=== PATIENT | male | born 1955 | race Caucasian/White ===

== ENCOUNTER 2018-11-07 04:44 | Emergency (ER) | payer MEDICARE ==
[~2018-11-07] VITALS: Ht 193 cm; Wt 88.5 kg
[2018-11-07 05:48] LABS: Basophils # (auto) 0.1 uL; Eosinophils # (auto) 0.2 uL; Eosinophils % (auto) 2.7 % (0.0-7.0); Hematocrit 48.8 % (41.0-53.0); Hemoglobin 16.4 g/dL (13.5-17.5); Lymphocytes # (auto) 1.4 uL; Lymphocytes % (auto) 15.9 % (10.0-50.0); Mean Corpuscular Hemoglobin 31.9 pg (28.0-32.0); Mean Corpuscular Hgb Conc. 33.7 g/dL (32.0-36.0); Mean Corpuscular Volume 94.6 fL (80.0-100.0); Monocytes # (auto) 0.9 uL; Monocytes % (auto) 10.6 % (0.0-12.0); Neutrophils # (auto) 6.1 uL; Neutrophils % (auto) 69.8 % (37.0-80.0); Platelet Count (auto) 293 10^3/uL (140-450); Red Blood Cells 5.15 10^6/uL (4.5-5.90); Red Cell Distribution Width 14.1 % (11.8-14.3); White Blood Cell 8.7 10^3/uL (4.4-10.8)
[2018-11-07 05:59] LABS: Albumin 3.8 g/dL (3.4-5.0); BUN/Creatinine Ratio 11.5; Calcium 8.4 mg/dL (8.5-10.1); Potassium 4.2 mmol/L (3.5-5.1)
[2018-11-07 06:01] LABS: Bilirubin, Total 0.6 mg/dL (0.2-1.0); Total Protein 7.4 g/dL (6.4-8.2)
[2018-11-07 09:11] VITALS: BP 176/103
== END 2018-11-07 09:18 | disposition home or self-care (01) ==
LOC: ER 04:47
DX: M25.472 Effusion, left ankle (principal); I10 Essential (primary) hypertension; F17.210 Nicotine dependence, cigarettes, uncomplicated
CPT/HCPCS: 36415; 73610; 80053; 85025; 85379; 93971

== ENCOUNTER 2019-12-14 01:44 | Emergency (ER) | payer OTHER, MEDICAID ==
[~2019-12-14] VITALS: Ht 190.5 cm; Wt 79.4 kg
[2019-12-14] MEDS ORDERED: ACETAMINOPHEN 325 MG TAB PO ONE (02:30)
[2019-12-14] MEDS ORDERED: IPRATROPIUM BROM 0.5 MG/2.5ML INH SOL NEB ONE (02:45)
[2019-12-14] MEDS ORDERED: ALBUTEROL SULF 2.5 MG/0.5ML(0.5%) NEB SOLN NEB ONE (02:45)
[2019-12-14 03:09] LABS: Basophils # (auto) 0.1 uL; Basophils % (auto) 1.2 % (0.0-2.0); Eosinophils # (auto) 0 uL; Eosinophils % (auto) 0.3 % (0.0-7.0); Hemoglobin 17.7 g/dL (13.5-17.5); Mean Corpuscular Hemoglobin 30.8 pg (28.0-32.0); Monocytes # (auto) 1.1 uL; Neutrophils # (auto) 4.9 uL; Red Cell Distribution Width 13.8 % (11.8-14.3); White Blood Cell 6.8 10^3/uL (4.4-10.8)
[2019-12-14 03:10] LABS: Hematocrit 51.8 % (41.0-53.0); Lymphocytes # (auto) 0.7 uL; Lymphocytes % (auto) 10.8 % (10.0-50.0); Mean Corpuscular Hgb Conc. 34.1 g/dL (32.0-36.0); Mean Corpuscular Volume 90.3 fL (80.0-100.0); Monocytes % (auto) 15.6 % (0.0-12.0); Neutrophils % (auto) 72.1 % (37.0-80.0); Nucleated Red Blood Cells % 0.1 %; Platelet Count (auto) 223 10^3/uL (140-450); Red Blood Cells 5.74 10^6/uL (4.5-5.90)
[2019-12-14 03:31] LABS: Alanine Aminotransferase 36 U/L (16-61); Albumin 3.2 g/dL (3.4-5.0); Anion Gap 9 (5-15); Aspartate Aminotransferase 27 U/L (15-37); BUN/Creatinine Ratio 9.9; Blood Urea Nitrogen 12 mg/dL (7-18); Calcium 8.3 mg/dL (8.5-10.1); Carbon Dioxide 26 mmol/L (21-32); Chloride 100 mmol/L (98-107); GFR African American 77 mL/min; GFR Non-African American 64 mL/min; Glucose 178 mg/dL (74-106); Potassium 4.3 mmol/L (3.5-5.1); Sodium 135 mmol/L (136-145)
[2019-12-14 03:40] LABS: Alkaline Phosphatase 112 U/L (45-117); Bilirubin, Total 0.6 mg/dL (0.2-1.0); Total Protein 7.2 g/dL (6.4-8.2)
[2019-12-14 04:54] LABS: Urine Bacteria NONE SEEN /hpf (None Seen); Urine Blood Negative /uL (Negative); Urine Specific Gravity 1.018 (1.001-1.035); Urine WBC <1 /hpf (0 - 3)
[2019-12-14 09:35] VITALS: BP 118/76
[2019-12-14] MEDS ORDERED: guaiFENesin-CODEINE Liq 5 ML UD PO ONE (10:15)
== END 2019-12-14 10:28 | disposition home or self-care (01) ==
LOC: ER 01:45
DX: J20.9 Acute bronchitis, unspecified (principal); J44.1 Chronic obstructive pulmonary disease with (acute) exacerbation; I11.0 Hypertensive heart disease with heart failure
CPT/HCPCS: 36415; 71045; 80053; 81001; 83605; 83880; 84484; 85025; 87040; 87077; 87186; 93005; 94640; 99284; J7611; J7644

== ENCOUNTER 2024-05-22 23:46 | Inpatient (IN) | payer OTHER, MEDICAID ==
[~2024-05-22] VITALS: Ht 193 cm; Wt 86.0 kg
[2024-05-23] VITALS (16 sets, daily range): BP systolic 131–168; BP diastolic 74–91; PULSE 100–115; RESP 12–24; TEMP 97.7–98.2; O2SAT 91–96
[2024-05-23] MEDS: ALBUTEROL SULF 2.5 MG/0.5ML(0.5%) NEB SOLN NEB ONE ×3 (00:15→07:10)
[2024-05-23] MEDS: IPRATROPIUM BROM 0.5 MG/2.5ML INH SOL NEB ONE ×2 (00:15→04:26)
[2024-05-23 00:24] LABS: Basophils # (auto) 0.1 10 ^3/uL (0-0.2); Basophils % (auto) 1.2 % (0.0-2.0); Eosinophils # (auto) 0.9 10 ^3/uL (0-0.8); Eosinophils % (auto) 8.9 % (0.0-7.0); Hematocrit 49.2 % (41.0-53.0); Hemoglobin 16.5 g/dL (13.5-17.5); Lymphocytes # (auto) 1.4 10 ^3/uL (0.4-5.4); Lymphocytes % (auto) 13.6 % (10.0-50.0); Mean Corpuscular Hemoglobin 30.7 pg (28.0-32.0); Mean Corpuscular Hgb Conc. 33.5 g/dL (32.0-36.0); Mean Corpuscular Volume 91.8 fL (80.0-100.0); Monocytes # (auto) 0.9 10 ^3/uL (0-1.3); Monocytes % (auto) 9.3 % (0.0-12.0); Neutrophils # (auto) 6.8 10 ^3/uL (1.6-8.6); Red Blood Cells 5.36 10^6/uL (4.5-5.90); Red Cell Distribution Width 13.9 % (11.8-14.3); White Blood Cell 10.1 10^3/uL (4.4-10.8)
[2024-05-23 00:55] LABS: Alanine Aminotransferase 26 U/L (7-40); Albumin 4.3 g/dL (3.2-4.8); Alkaline Phosphatase 81 U/L (46-116); Anion Gap 7 (5-15); Aspartate Aminotransferase 27 U/L (13-40); BUN/Creatinine Ratio 6.5 (10.0-20.0); Bilirubin, Total 2.1 mg/dL (0.2-1.0); Blood Urea Nitrogen 6 mg/dL (9-23); Calcium 9.8 mg/dL (8.7-10.4); Carbon Dioxide 27 mmol/L (20-30); Chloride 103 mmol/L (98-107); Glucose 100 mg/dL (74-106); Potassium 3.9 mmol/L (3.5-5.1); Sodium 137 mmol/L (136-145); Total Protein 7.3 g/dL (5.7-8.2)
[2024-05-23] MEDS: hydrALAZINE HCL 20 MG/ML VL IV ONE (03:26)
[2024-05-23] MEDS: IPRATROPIUM BROM 0.5 MG/2.5ML INH SOL ONE (04:27)
[2024-05-23] MEDS: ALBUTEROL SULF 2.5 MG/0.5ML(0.5%) NEB SOLN ONE (04:27)
[2024-05-23] MEDS: methylPREDNISolone SOD SUCC 125 MG/2 ML VL IV ONE (06:33)
[2024-05-23] MEDS ORDERED: MORPHINE SULFATE INJ 2 MG/ml SYRG IV PRN ×2 (07:15→07:30)
[2024-05-23] MEDS ORDERED: IPRATROPIUM BROM 0.5 MG/2.5ML INH SOL NEB PRN (07:15)
[2024-05-23] MEDS ORDERED: ACETAMINOPHEN 325 MG TAB PO PRN ×2 (07:15→07:30)
[2024-05-23] MEDS ORDERED: NITROGLYCERIN 0.4 MG SL TAB SL PRN ×2 (07:15→07:30)
[2024-05-23] MEDS ORDERED: ONDANSETRON HCL 4 MG/2 ML VIAL IV PRN ×2 (07:15→07:30)
[2024-05-23] MEDS ORDERED: ALBUTEROL SULF 2.5 MG/0.5ML(0.5%) NEB SOLN NEB PRN (07:15)
[2024-05-23 07:50] LABS: Urine Bacteria None Seen /hpf (None Seen)
[2024-05-23 08:05] LABS: Urine Blood Negative /uL (Negative); Urine Clarity Clear (Clear); Urine Color Yellow (Yellow); Urine Protein, UAD Negative (Negative); Urine Specific Gravity 1.015 (1.001-1.035); Urine Urobilinogen Normal (Negative); Urine WBC 1 /hpf (0 - 3)
[2024-05-23] MEDS ORDERED: FUROSEMIDE 40 MG TAB PO SCH (10:00)
[2024-05-23] MEDS ORDERED: ENOXAPARIN SOD 40 MG/0.4 ML SYRINGE SC SCH (10:00)
[2024-05-23] MEDS ORDERED: amLODIPine BESYLATE 5 MG TAB PO SCH (10:00)
[2024-05-23] MEDS ORDERED: methylPREDNISolone SOD SUCC 40 MG/ML VL IV SCH (10:00)
[2024-05-23] MEDS ORDERED: FURO20TA3 PO (10:09)
[2024-05-23] MEDS ORDERED: METF-370 PO (10:09)
[2024-05-23] MEDS ORDERED: ALBU2TAB11 NEB (10:09)
[2024-05-23] MEDS ORDERED: AMLO1TAB22 PO (10:09)
[2024-05-23] MEDS: ENOXAPARIN SOD 40 MG/0.4 ML SYRINGE SC SCH (10:46)
[2024-05-23] MEDS: methylPREDNISolone SOD SUCC 40 MG/ML VL IV SCH (10:47)
[2024-05-23] MEDS: amLODIPine BESYLATE 5 MG TAB PO SCH (10:48)
[2024-05-23] MEDS: FUROSEMIDE 40 MG TAB PO SCH (10:49)
[2024-05-23] MEDS: IPRATROPIUM BROM 0.5 MG/2.5ML INH SOL NEB PRN (11:24)
[2024-05-23] MEDS: ALBUTEROL SULF 2.5 MG/0.5ML(0.5%) NEB SOLN NEB PRN (11:24)
[2024-05-23] MEDS: IPRATROPIUM BROM 0.5 MG/2.5ML INH SOL NEB SCH (21:59)
[2024-05-23] MEDS: ALBUTEROL SULF 2.5 MG/0.5ML(0.5%) NEB SOLN NEB SCH (22:00)
[2024-05-24] VITALS (18 sets, daily range): BP systolic 111–148; BP diastolic 62–79; PULSE 78–111; RESP 16–20; TEMP 97.7–98.3; O2SAT 92–98
[2024-05-24 05:56] LABS: Basophils # (auto) 0 10 ^3/uL (0-0.2); Basophils % (auto) 0.1 % (0.0-2.0); Eosinophils # (auto) 0 10 ^3/uL (0-0.8); Hematocrit 46.7 % (41.0-53.0); Hemoglobin 15.7 g/dL (13.5-17.5); Lymphocytes # (auto) 0.7 10 ^3/uL (0.4-5.4); Lymphocytes % (auto) 7.2 % (10.0-50.0); Mean Corpuscular Hemoglobin 30.8 pg (28.0-32.0); Mean Corpuscular Hgb Conc. 33.7 g/dL (32.0-36.0); Mean Corpuscular Volume 91.4 fL (80.0-100.0); Monocytes # (auto) 0.8 10 ^3/uL (0-1.3); Monocytes % (auto) 8.4 % (0.0-12.0); Neutrophils # (auto) 8.5 10 ^3/uL (1.6-8.6); Neutrophils % (auto) 84.3 % (37.0-80.0); Red Blood Cells 5.11 10^6/uL (4.5-5.90); Red Cell Distribution Width 14.1 % (11.8-14.3); White Blood Cell 10.1 10^3/uL (4.4-10.8)
[2024-05-24 06:12] LABS: Chloride 102 mmol/L (98-107); Potassium 4.2 mmol/L (3.5-5.1); Sodium 138 mmol/L (136-145)
[2024-05-24 06:13] LABS: Anion Gap 3 (5-15); Calcium 9.5 mg/dL (8.5-10.1); Carbon Dioxide 33 mmol/L (20-30)
[2024-05-24 06:18] LABS: BUN/Creatinine Ratio 16.5 (10.0-20.0); Blood Urea Nitrogen 19 mg/dL (9-23); Glucose 262 mg/dL (74-106)
[2024-05-24] MEDS: guaiFENesin-DM 100/10mg/5ml SYR PO PRN (09:21)
[2024-05-25] VITALS (19 sets, daily range): BP systolic 108–134; BP diastolic 66–79; PULSE 65–103; RESP 16–18; TEMP 97.8–98.3; O2SAT 88–97
[2024-05-25] MEDS: methylPREDNISolone SOD SUCC 40 MG/ML VL IV SCH (15:20)
[2024-05-26] VITALS (23 sets, daily range): BP systolic 126–138; BP diastolic 68–80; PULSE 73–98; RESP 16–20; TEMP 97.9–98.2; O2SAT 92–100
[2024-05-26] MEDS: guaiFENesin-DM 100/10mg/5ml SYR PO ONE (16:29)
[2024-05-26] MEDS ORDERED: guaiFENesin-DM 100/10mg/5ml SYR PO PRN (20:00)
[2024-05-27] VITALS (21 sets, daily range): BP systolic 107–146; BP diastolic 55–75; PULSE 73–96; RESP 14–20; TEMP 97.5–98.8; O2SAT 91–100
[2024-05-27] MEDS ORDERED: IOHEXOL 350 MG/ML 100ML IJ ONE (07:39)
[2024-05-27] MEDS: levoFLOXacin 500MG 100 ML IV SCH (09:18)
[2024-05-27] MEDS: levoFLOXacin 500 MG TAB PO ONE (13:37)
[2024-05-27] MEDS: methylPREDNISolone SOD SUCC 40 MG/ML VL IV SCH (21:20)
[2024-05-28] VITALS (17 sets, daily range): BP systolic 122–145; BP diastolic 65–78; PULSE 67–85; RESP 15–21; TEMP 98–98.9; O2SAT 92–100
[2024-05-28 06:35] LABS: Basophils # (auto) 0 10 ^3/uL (0-0.2); Basophils % (auto) 0.1 % (0.0-2.0); Eosinophils # (auto) 0 10 ^3/uL (0-0.8); Hematocrit 46.7 % (41.0-53.0); Hemoglobin 15.5 g/dL (13.5-17.5); Lymphocytes # (auto) 0.4 10 ^3/uL (0.4-5.4); Lymphocytes % (auto) 3.7 % (10.0-50.0); Mean Corpuscular Hemoglobin 30.4 pg (28.0-32.0); Mean Corpuscular Hgb Conc. 33.2 g/dL (32.0-36.0); Mean Corpuscular Volume 91.6 fL (80.0-100.0); Monocytes # (auto) 0.9 10 ^3/uL (0-1.3); Monocytes % (auto) 7.3 % (0.0-12.0); Neutrophils # (auto) 10.6 10 ^3/uL (1.6-8.6); Neutrophils % (auto) 88.9 % (37.0-80.0); Red Cell Distribution Width 13.9 % (11.8-14.3); White Blood Cell 11.9 10^3/uL (4.4-10.8)
[2024-05-28 06:42] LABS: Chloride 101 mmol/L (98-107); Potassium 4.4 mmol/L (3.5-5.1); Sodium 136 mmol/L (136-145)
[2024-05-28 06:43] LABS: Anion Gap 1 (5-15); Carbon Dioxide 34 mmol/L (20-30)
[2024-05-28 06:44] LABS: Calcium 9.1 mg/dL (8.7-10.4)
[2024-05-28 06:48] LABS: BUN/Creatinine Ratio 17.2 (10.0-20.0); Blood Urea Nitrogen 20 mg/dL (9-23)
[2024-05-28 06:49] LABS: Glucose 368 mg/dL (74-106)
[2024-05-28] MEDS: levoFLOXacin 500 MG TAB PO SCH (09:33)
[2024-05-28] MEDS ORDERED: AZIT500T66 PO (09:39)
[2024-05-28] MEDS ORDERED: UMEC1AER IN (09:39)
[2024-05-28] MEDS ORDERED: PRED20TA2 PO (09:39)
[2024-05-29 01:00] VITALS: BP 125/68; PULSE 76; RESP 18; TEMP 98.2; O2SAT 95
[2024-05-29 05:00] VITALS: BP 130/68; PULSE 70; RESP 17; TEMP 98.4; O2SAT 97
[2024-05-29 07:12] VITALS: PULSE 62; RESP 18; O2SAT 97
[2024-05-29 07:18] VITALS: PULSE 68; RESP 18
[2024-05-29 08:00] VITALS: BP 114/57; PULSE 65; RESP 22; O2SAT 96
[2024-05-29 08:59] VITALS: BP 114/57; PULSE 65; RESP 22; TEMP 97.8; O2SAT 96
== END 2024-05-29 08:00 | disposition home or self-care (01) | DRG 189 ==
LOC: EDBD 23:46 → ER 23:46 → TELE-WESTW 05-23 07:06 → TELE 05-23 07:06 → ER 05-23 07:06 → TELE-WESTW 05-23 08:54
PROVIDERS: ADMIT Nurse Practitioner; ATTEND Internal Medicine Pulmonary Disease
DX: J96.21 Acute and chronic respiratory failure with hypoxia (principal); J44.1 Chronic obstructive pulmonary disease with (acute) exacerbation; I11.0 Hypertensive heart disease with heart failure; I50.9 Heart failure, unspecified; F17.210 Nicotine dependence, cigarettes, uncomplicated; Z99.81 Dependence on supplemental oxygen; Z79.84 Long term (current) use of oral hypoglycemic drugs; Z79.899 Other long term (current) drug therapy; Z80.0 Family history of malignant neoplasm of digestive organs; Z80.1 Family history of malignant neoplasm of trachea, bronchus and lung; Z71.6 Tobacco abuse counseling
CPT/HCPCS: 36415; 71045; 71275; 80048; 80053; 81001; 83880; 84484; 85025; 85379; 93005; 94640; 96374; 96375; G0378; J1956

== ENCOUNTER 2025-07-30 04:31 | Inpatient (IN) | payer OTHER, MEDICAID ==
[2025-07-30] VITALS (13 sets, daily range): BP systolic 100–145; BP diastolic 68–88; PULSE 103–115; RESP 14–22; TEMP 97.9–98; O2SAT 91–98
[~2025-07-30] VITALS: Ht 185.4 cm; Wt 89.4 kg
[~2025-07-30 04:31] MED LIST: ALBU2TAB11 NEB; AMLO1TAB22 PO; AZIT500T66 PO; FURO20TA3 PO; METF-370 PO; PRED20TA2 PO; UMEC1AER IN
--- NOTE | 2025-07-30 04:39 | ED.PDOC ---
SOB-HPI HPI Comments 70 year old male presents to the ED via EMS with a chief complaint of shortness of breath onset today. Per EMS, patient was experiencing respiratory distress, was placed on c-pap, given breathing treatment in route to ED. Patient has a PMHx COPD, CHF, HTN, is not complaint with his medication. Upon ED arrival, patient states symptoms have improved. Denies chest pain, dizziness, nausea, vomiting, fever, chills. No other symptoms or modifying factors present at this time. Time Seen by MD: 04:35 Primary Care Provider: phan Reviewed notes: Medications, Allergies Information Source: Friend, Emergency Med Personnel Mode of Arrival: EMS Severity: Moderate Timing: Hours Duration: Since onset Context: At Rest PE Risk Factors: None History of: COPD, CHF Prehospital treatment: Breathing Tx, C-Pap Modifying Factors: Nothing Associated Signs and Symptoms: Wheeze Past Medical History PAST MEDICAL HISTORY: CHF, COPD, HTN Surgical History: Denies all surgeries Family History Family History: Reviewed,noncontributory to illness Social History Smoker: Quit Less Than 1 Year, Cigarettes Alcohol: Occasionally Drugs: Denies Drug Use Lives In: Home Constitutional: denies: chills, diaphoresis, fatigue, fever, malaise, sweats, weakness, others EENTM: denies: blurred vision, double vision, ear bleeding, ear discharge, ear drainage, ear pain, ear ringing, eye pain, eye redness, hearing loss, mouth pain, mouth swelling, nasal discharge, nose bleeding, nose congestion, nose p ain, photophobia, tearing, throat pain, throat swelling, voice changes, others Respiratory: reports: cough, hemoptysis, orthopnea, SOB at rest, shortness of breath, SOB with excertion, stridor, wheezing, others Cardiovascular: denies: chest pain, dizzy spells, diaphoresis, Dyspnea on exertion, edema, irregular heart beat, left arm pain, lightheadedness, palpitations, PND, syncope, others Gastrointestinal: denies: abdomen distended, abdominal pain, blood streaked bowels, constipated, diarrhea, dysphagia, difficulty swallowing, hematemesis, melena, nausea, poor appetite, poor fluid intake, rectal bleeding, rectal pain, vomiting, others Genitourinary: denies: burning, dysuria, flank pain, frequency, hematuria, incontinence, penile discharge, penile sore, pain, testicle pain, testicle swelling, urgency, others Neurological: denies: dizziness, fainting, headache, left sided numbness, left sided weakness, numbness, paresthesia, pre-existing deficit, right sided numbness, right sided weakness, seizure, speech problems, tingling, tremors, weakness, others Musculoskeletal: denies: back pain, gout, joint pain, joint swelling, muscle pain, muscle stiffness, neck pain, others Integumetry: denies: bruises, change in color, change in hair/nails, dryness, laceration, lesions, lumps, rash, wounds, others Allergic/Immunocompromised: denies: Difficulty Healing, Frequent Infections, Hives, Itching, others Hematologic/Lymphatic: denies: anemia, blood clots, easy bleeding, easy bruising, swollen glands, others Endocrine: denies: excessive hunger, excessive sweating, excessive thirst, excessive urination, flushing, intolerance to cold, intolerance to heat, unexplained weight gain, unexplained weight loss, others Psychiatric: denies: anxiety, bipolar disorder, depression, hopeless, panic disorder, schizophrenia, sleepless, suicidal, others All Other Systems: Reviewed and Negative Physical Exam General Appearance: No Apparent Distress, Normal HEENT: Normal ENT Inspection, Pharynx Normal, TMs Normal Neck: Full Range of Motion, Non-Tender, Normal, Normal Inspection Respiratory: Wheezing, Other (tachypneic) Cardiovascular: No Edema, No JVD, No Murmur, No Gallop, Normal Peripheral Pulses, Regular Rate/Rhythm Breast Exam: Deferred Gastrointestinal: No Organomegaly, Non Tender, No Pulsatile Mass, Normal Bowel Sounds, Soft Genitalia: Deferred Pelvic: Deferred Rectal: Deferred Extremities: No calf tenderness, Normal capillary refill, Normal inspection, Normal range of motion, Non-tender, No pedal edema Musculoskeletal : Apperance: Normal Neurologic: Alert, hammer fitter II-XII nml as Tested, No Motor Deficits, Normal Affect, Normal Mood, No Sensory Deficits Cerebellar Function: Normal Reflexes: Normal Skin: Dry, Normal Color, Warm Lymphatic: No Adenopathy Was a procedure done? Was a procedure done?: No Differential Dx Differential Diagnosis: CHF, COPD, Hypertension, Pneumonia X-Ray, Labs, Meds, VS Vital Signs Date Time Temp Pulse Resp B/P (MAP) Pulse Ox O2 Delivery O2 Flow Rate FiO2 07/30/25 04:54 98.1 115 22 138/83 (101) 99 98.1 07/30/25 04:54 115 22 97 Bi-Pap+ 40 40 07/30/25 04:49 122 Nasal BiPAP Mask 60 07/30/25 04:49 98.9 61 30 106/61 97 98.9 07/30/25 04:40 127 Lab Test 07/30/25 04:48 Range/Units White Blood Count 10.0 4.4-10.8 10^3/uL Red Blood Count 4.95 4.5-5.90 10^6/uL Hemoglobin 15.3 13.5-17.5 g/dL Hematocrit 44.9 41.0-53.0 % Mean Corpuscular Volume 90.6 80.0-100.0 fL Mean Corpuscular Hemoglobin 30.8 28.0-32.0 pg Mean Corpuscular Hemoglobin Concent 34.0 32.0-36.0 g/dL Red Cell Distribution Width 13.9 11.8-14.3 % Platelet Count 297 140-450 10^3/uL Mean Platelet Volume 8.3 6.9-10.8 fL Neutrophils (%) (Auto) 62.0 37.0-80.0 % Lymphocytes (%) (Auto) 19.2 10.0-50.0 % Monocytes (%) (Auto) 9.5 0.0-12.0 % Eosinophils (%) (Auto) 8.8 H 0.0-7.0 % Basophils (%) (Auto) 0.5 0.0-2.0 % Neutrophils # (Auto) 6.2 1.6-8.6 10 ^3/uL Lymphocytes # (Auto) 1.9 0.4-5.4 10 ^3/uL Monocytes # (Auto) 0.9 0-1.3 10 ^3/uL Eosinophils # (Auto) 0.9 H 0-0.8 10 ^3/uL Basophils # (Auto) 0 0-0.2 10 ^3/uL Nucleated Red Blood Cells 0.1 % Sodium Level 141 136-145 mmol/L Potassium Level 3.5 3.5-5.1 mmol/L Chloride Level 102 98-107 mmol/L Carbon Dioxide Level 28 20-31 mmol/L Anion Gap 11 5-15 Blood Urea Nitrogen 5 L 9-23 mg/dL Creatinine 0.89 0.700-1.30 mg/dL Glomerular Filtration Rate Calc 91 >90 mL/min BUN/Creatinine Ratio 5.6 L 10.0-20.0 Serum Glucose 142 H 74-106 mg/dL Calcium Level 9.0 8.7-10.4 mg/dL Troponin I High Sensitivity 9 </=54 ng/L B-Type Natriuretic Peptide 82.44 0-100 pg/mL Current Medications Medications (Trade) Dose Ordered Sig/Ed Route Start Time Stop Time Status Last Admin Azithromycin (Zithromax Tablet) 500 mg ONCE ONCE PO 07/30/25 04:45 07/30/25 04:46 DC 07/30/25 04:52 Methylprednisolone Sodium Succinate (Solu Medrol) 62.5 mg ONCE ONCE IV 07/30/25 04:45 07/30/25 04:46 DC 07/30/25 04:51 Time of 1ST Reevaluation: 05:05 Reevaluation 1ST: Unchanged Patient Education/Counseling: Diagnosis, Treatment, Prognosis Family Education/Counseling: No Family Present SEPSIS Sepsis Screen Physician Orders Chest Portable (07/30/25 04:36) Electrocardigram (07/30/25 04:36) BIPAP (07/30/25 05:28) Abg W/ Co-Ox (07/30/25 05:28) Vital Signs Date Time Temp Pulse Resp B/P (MAP) Pulse Ox O2 Delivery O2 Flow Rate FiO2 07/30/25 04:54 98.1 115 22 138/83 (101) 99 98.1 07/30/25 04:54 115 22 97 Bi-Pap+ 40 40 07/30/25 04:49 122 Nasal BiPAP Mask 60 07/30/25 04:49 98.9 61 30 106/61 97 98.9 07/30/25 04:40 127 Laboratory Tests Test 07/30/25 04:48 White Blood Count 10.0 10^3/uL (4.4-10.8) Medications Medications Dose Ordered Sig/Ed Route Start Time Stop Time Status Last Admin Dose Admin Azithromycin 500 mg ONCE ONCE PO 07/30/25 04:45 07/30/25 04:46 DC 07/30/25 04:52 Methylprednisolone Sodium Succinate 62.5 mg ONCE ONCE IV 07/30/25 04:45 07/30/25 04:46 DC 07/30/25 04:51 Departure 1 Departure Time of Disposition: 05:44 (Patient presented with acute shortness of breath concerning for acute on chronic COPD Exacerbation, Pneumonia, ACS, CHF, Pneumothorax. Less likely PE, Dissection. Data: 1. I ordered and reviewed the result of at least 3 labs including a CBC, BMP, and Troponin. 2. I independently interpreted the following tests: Chest X-ray shows congestion versus viral syndrome .Risk:This patient has a high risk of morbidity due to further diagnostic testing or treatment and may suffer from respiratory or cardiac etiology . Workup reveals a likely COPD Exacerbation and patient should be admitted for further workup. and possible expert consultation.) Impression: Primary Impression: Acute hypoxic respiratory failure Additional Impressions: COPD exacerbation Shortness of breath Disposition: ADMITTED INPATIENT Admit to: [facility] Condition: Guarded Critical Care Note Critical Care Time?: Yes Critical care comment: Acute on chronic respiratory failure Authorized and Performed by: Silverio Cortez MD Total critical care time: Approximately 108 minutes Due to a high probability of clinically significant, life threatening dete rioration, the patient required my highest level of preparedness to intervene emergently and I personally spent this critical care time directly and personally managing the patient. This critical care time included obtaining a history; examining the patient; pulse oximetry; ordering and review of studies; arranging urgent treatment with development of a management plan; evaluation of patient's response to treatment; frequent reassessment; and, discussions with other providers. This critical care time was performed to assess and manage the high probability of imminent, life-threatening deterioration that could result in multi-organ f ailure. It was exclusive of separately billable procedures and treating other patients and teaching time. Please see my other sections and the rest of the note for further information on patient assessment and treatment. Stability Stability form required: No Heart Score Heart Score: Heart Score Response (Comments) Value History Slightly Suspicious 0 EKG Repolarization Disturb 1 Age >65 2 Risk Factors >3 or Hx ASHD 2 Troponin 1-2 x's Normal limit 1 Total 6 I personally scribed for SILVERIO CORTEZ MD ([email or web address]) on 07/30/25 at 04:39. Electronically submitted by Tayler Hickey ([email or web address]). SILVERIO CORTEZ MD Jul 30, 2025 04:39
[2025-07-30] MEDS: methylPREDNISolone SOD SUCC 125 MG/2 ML VL IV ONE (04:51)
[2025-07-30] MEDS: AZITHROMYCIN 250 MG TAB PO ONE (04:52)
[2025-07-30 05:04] LABS: Hematocrit 44.9 % (41.0-53.0); Hemoglobin 15.3 g/dL (13.5-17.5); Mean Corpuscular Hemoglobin 30.8 pg (28.0-32.0); Mean Corpuscular Volume 90.6 fL (80.0-100.0); Nucleated Red Blood Cells % 0.1 %
--- NOTE | 2025-07-30 05:07 | DVH ---
CHEST RADIOGRAPH Indication: sob Technique: Single frontal view of the chest was obtained COMPARISON: CT CT ANGIO CHEST CONTRAST on DOS: 05/27/24, XY CHEST PORTABLE on DOS: 05/23/24, CHEST NAYE BLE on DOS: 12/14/19 FINDINGS: Lines and Tubes: None Lungs: Congestion Pleura: No effusion. No pneumothorax. Cardiomediastinal contours: Unremarkable Bones: Unremarkable IMPRESSION: Increased interstital prominence. This may represent pulmonary vascular congestion and/or viral pneum onia. Clinical correlation advised.
[2025-07-30 05:13] LABS: Chloride 102 mmol/L (98-107); Sodium 141 mmol/L (136-145)
[2025-07-30 05:14] LABS: Anion Gap 11 (5-15); Calcium 9.0 mg/dL (8.7-10.4); Carbon Dioxide 28 mmol/L (20-31)
[2025-07-30 05:19] LABS: BUN/Creatinine Ratio 5.6 (10.0-20.0)
[2025-07-30 05:25] LABS: Blood Urea Nitrogen 5 mg/dL (9-23); Glucose 142 mg/dL (74-106); Potassium 3.5 mmol/L (3.5-5.1)
[2025-07-30] MEDS: ALBUTEROL SULF 2.5 MG/0.5ML(0.5%) NEB SOLN NEB ONE (06:29)
[2025-07-30] MEDS: IPRATROPIUM BROM 0.5 MG/2.5ML INH SOL NEB ONE (06:29)
[2025-07-30 06:52] LABS: Base Excess 4.2 mmol/L (-2.0-3.0)
--- NOTE | 2025-07-30 06:52 | ECG ---
[facility] Test Date: 2025-07-30 Test Time: 04:40:21 Pat Name: DILLON CHAUHAN Department: [facility] ED Patient ID: [id number] Room: 0281 Gender: M [place] Attendant: YOSELIN : 1955 Requested By: SILVERIO TRUJILLO Order Number: [id number] Reading MD: Chaz Flroes Measurements Intervals Dowell Rate: 127 P: 75 DE: 190 QRS: -89 QRSD: 114 T: 72 QT: 325 QTc: 473 Interpretive Statements Sinus tachycardia with irregular rate Consider right atrial enlargement Incomplete RBBB and LAFB Abnormal R-wave progression, late transition ST elevation, consider inferior injury Electronically Signed On 07-31-2025 17:02:14 PDT by Chaz Flores Please click the below link to view image of tracing.
[2025-07-30] MEDS ORDERED: ACETAMINOPHEN 325 MG TAB PO PRN (08:30)
[2025-07-30] MEDS ORDERED: HYDROcodone-ACET 5/325MG TAB PO PRN (08:30)
[2025-07-30] MEDS ORDERED: ONDANSETRON HCL 4 MG/2 ML VIAL IV PRN (08:30)
[2025-07-30] MEDS ORDERED: DOCUSATE SOD 100 MG CAP PO PRN (08:30)
[2025-07-30] MEDS ORDERED: DEXTROSE (50%) 50ML SYRG IV PRN (08:30)
--- NOTE | 2025-07-30 08:32 | DVHHP2 ---
History of Present Illness Reason for Visit: Shortness of breath History of Present Illness Stu Portillo is a 70-year-old male with past medial history of COPD, hypertension, and diabetes, who was brought to the hospital by EMS for shortness of breath. Patient states his shortness of breath began about 2 days ago, with an associated cough. He states it has continued to worsen over the last couple of days prompting him to come to the hospital. Patient was was placed on CPAP/oxygen and given breathing treatments by EMS as they transported the patient to the hospital. He Social service consult was placed due to patient stating he does not have a primary care provider, is not sure where he gets his prescriptions from, and states he stopped taking them due to side effects. He does not seem to understand what all his medications are or why he should be taking them. Cardiovascular: HTN Pulmonary: COPD Endocrine: Diabetes Past Surgical History: Cholecystectomy, Other (L ankle), Tonsillectomy Smoke: Quit (1 year ago) ALCOHOL: occassional Drugs: None Lives: Other (Rents a room) Domestic Violence: Neg Review of Systems Constitutional: No: Fever, Chills, Sweats, Weakness, Malaise, Other Eyes: No: Pain, Vision change, Conjunctivae inflammation, Eyelid inflammation, Other, Redness ENT: No: Ear pain, Ear discharge, Nose pain, Nose discharge, Nose congestion, Mouth pain, Mouth swelling, Throat pain, Throat swelling, Other Respiratory: Cough, Shortness of breath, SOB with excertion, Wheezing, Pleuritic Pain, Other (Rib pain from coughing); No: Dry, Hemoptysis, Sputum, Wheezing Cardiovascular: No: Chest Pain, Palpitations, Orthopnea, Paroxysmal Noc. Dyspnea, Edema, Lt Headedness, Other Gastrointestinal: No: Nausea, Vomiting, Abdominal Pain, Diarrhea, Constipation, Melena, Hematochezia, Other Genitourinary: No Dysuria, No Frequency, No Incontinence, No Hematuria, No Retention, No Other Musculoskeletal: No: other, neck pain, shoulder pain, arm pain, back pain, hand pain, leg pain, foot pain Skin: No: Rash, Lesions, Jaundice, Bruising, Other Neurological: No: Weakness, Numbness, Incoordination, Change in speech, Confusion, Seizures, Other Allergies: Coded Allergies: NO KNOWN ALLERGIES (Unverified , 12/14/19) Exam Vital Signs Vital Signs Date Time Temp Pulse Resp B/P (MAP) Pulse Ox O2 Delivery O2 Flow Rate FiO2 07/30/25 06:30 16 96 Nasal Cannula* 2 28 07/30/25 05:49 118 123/61 07/30/25 04:54 98.1 98.1 General Appearance: Alert, Oriented X3, Cooperative, moderate distress HEENT: Atraumatic, PERRLA Respiratory: Other (Diminished breath sounds, wheezing) Cardiovascular: Normal S1, Normal S2, Other (ST) Abdominal: Normal bowel sounds, Soft, No tenderness, No hepatospenomegaly Extremities: No clubbing, No cyanosis, No edema, Normal pulses, No tenderness/swelling Skin: No rashes, No breakdown, No significant lesion Neuro: Normal gait, Normal speech, Strength at 5/5 X4 ext Psych/Mental Status: Mental status NL, Mood NL Labs/Xrays Labs Test 07/30/25 06:10 07/30/25 04:48 Range/Units Blood Gas Specimen Type Arterial Blood Gas Sample Site Right radial Blood Gas Patient Temperature 37.0 Arterial Blood Date Drawn [id number] Arterial Blood pH 7.454 H 7.350-7.450 Arterial Blood Partial Pressure CO2 41.6 35.0-48.0 mmHg Arterial Blood Partial Pressure O2 225.9 H 83.0-108.0 mmHg Arterial Blood HCO3 28.5 H 21.0-28.0 mmol/L Arterial Blood Oxygen Saturation 99.5 H 94.0-98.0 % Arterial Blood Base Excess 4.2 H -2.0-3.0 mmol/L Arterial Blood Oxyhemoglobin 98.5 H 94.0-98.0 % Arterial Blood Carboxyhemoglobin 0.2 L 0.5-1.5 % Arterial Blood Methemoglobin 0.8 0.0-1.5 % Jayme Test Yes Blood Gas Total Hemoglobin 15.30 13.5-17.5 g/dL Blood Gas Set Respiration Rate 12.0 Blood Gas Modality Mask - bipap FiO2 % 60.0 Blood Gas EPAP 5 Blood Gas IPAP 12 White Blood Count 10.0 4.4-10.8 10^3/uL Red Blood Count 4.95 4.5-5.90 10^6/uL Hemoglobin 15.3 13.5-17.5 g/dL Hematocrit 44.9 41.0-53.0 % Mean Corpuscular Volume 90.6 80.0-100.0 fL Mean Corpuscular Hemoglobin 30.8 28.0-32.0 pg Mean Corpuscular Hemoglobin Concent 34.0 32.0-36.0 g/dL Red Cell Distribution Width 13.9 11.8-14.3 % Platelet Count 297 140-450 10^3/uL Mean Platelet Volume 8.3 6.9-10.8 fL Neutrophils (%) (Auto) 62.0 37.0-80.0 % Lymphocytes (%) (Auto) 19.2 10.0-50.0 % Monocytes (%) (Auto) 9.5 0.0-12.0 % Eosinophils (%) (Auto) 8.8 H 0.0-7.0 % Basophils (%) (Auto) 0.5 0.0-2.0 % Neutrophils # (Auto) 6.2 1.6-8.6 10 ^3/uL Lymphocytes # (Auto) 1.9 0.4-5.4 10 ^3/uL Monocytes # (Auto) 0.9 0-1.3 10 ^3/uL Eosinophils # (Auto) 0.9 H 0-0.8 10 ^3/uL Basophils # (Auto) 0 0-0.2 10 ^3/uL Nucleated Red Blood Cells 0.1 % Sodium Level 141 136-145 mmol/L Potassium Level 3.5 3.5-5.1 mmol/L Chloride Level 102 98-107 mmol/L Carbon Dioxide Level 28 20-31 mmol/L Anion Gap 11 5-15 Blood Urea Nitrogen 5 L 9-23 mg/dL Creatinine 0.89 0.700-1.30 mg/dL Glomerular Filtration Rate Calc 91 >90 mL/min BUN/Creatinine Ratio 5.6 L 10.0-20.0 Serum Glucose 142 H 74-106 mg/dL Calcium Level 9.0 8.7-10.4 mg/dL Troponin I High Sensitivity 9 </=54 ng/L B-Type Natriuretic Peptide 82.44 0-100 pg/mL CHEST RADIOGRAPH FINDINGS: Lines and Tubes: None Lungs: Congestion Pleura: No effusion. No pneumothorax. Cardiomediastinal contours: Unremarkable Bones: Unremarkable IMPRESSION: Increased interstital prominence. This may represent pulmonary vascular congestion and/or viral pneumonia. Clinical correlation advised. SEPSIS Sepsis Screen Date sepsis recognized/suspect: Jul 30, 2025 Time Sepsis recognized/suspect: 456 Recent Procedure: No On Antibiotic Therapy: No Respiratory Rate >20: No Heart Rate >90: No Temp<36 C (96.8 F) or >38.3 C: No SBP <90 or MAP <65 mmHG: No New Acute Mental Status Change: No Is the patient on CPAP, BIPAP,: No Physician Orders Chest Portable (07/30/25 04:36) BIPAP (07/30/25 05:28) Abg W/ Co-Ox (07/30/25 05:28) Admit (07/30/25 08:16) Code Status (07/30/25 08:16) 2 Gm Sodium Diet (07/30/25 Breakfast) Hydrocodone-Acet 5/325mg Tab ([place] 5/32 (07/30/25 08:30) Ondansetron Hcl (Zofran) (07/30/25 08:30) Docusate Sodium Capsule (Colace Capsule) (07/30/25 08:30) Complete Blood Count (07/31/25 04:00) Comprehensive Metabolic Panel (07/31/25 04:00) Condition: Serious (07/30/25 08:16) Acetaminophen Tablet (Tylenol Tablet) (07/30/25 08:30) Ipratropium Medneb (Atrovent Medneb) (07/30/25 12:00) Albuterol Medneb (Ventolin Medneb) (07/30/25 12:00) Methylprednisolone Sod Succ (Solu Medrol (07/30/25 10:00) Ceftriaxone Ivpb Rocephin (07/30/25 09:00) Azithromycin 500mg/ 250ml (Zithromax 50 (07/30/25 10:00) Glucose Blood (Accu-Chek Comfort Curve T (07/30/25 11:30) Mild Sliding Scale (07/30/25 11:30) Dextrose 50% Syringe (07/30/25 08:30) * Home Insurance Agent Consult (07/30/25 ) Amlodipine Tablet (Norvasc Tablet) (07/30/25 10:00) Vital Signs Date Time Temp Pulse Resp B/P (MAP) Pulse Ox O2 Delivery O2 Flow Rate FiO2 07/30/25 06:30 16 96 Nasal Cannula* 2 28 9/3/25 06:25 96 Nasal Cannula 2.0 07/30/25 06:25 96 Nasal Cannula* 2 28 07/30/25 05:49 118 123/61 Nasal BiPAP Mask 60 07/30/25 05:00 121 07/30/25 04:54 98.1 115 22 138/83 (101) 99 98.1 07/30/25 04:54 115 22 97 Bi-Pap+ 40 40 07/30/25 04:49 122 Nasal BiPAP Mask 60 07/30/25 04:49 98.9 61 30 106/61 97 98.9 07/30/25 04:40 127 Laboratory Tests Test 07/30/25 04:48 White Blood Count 10.0 10^3/uL (4.4-10.8) Medications Medications Dose Ordered Sig/Ed Route Start Time Stop Time Status Last Admin Dose Admin Albuterol 5 mg ONCE ONCE NEB 07/30/25 04:45 07/30/25 04:46 DC 07/30/25 06:29 5 MG Azithromycin 500 mg ONCE ONCE PO 07/30/25 04:45 07/30/25 04:46 DC 07/30/25 04:52 500 MG Ipratropium [place] 0.5 mg ONCE ONCE NEB 07/30/25 04:45 07/30/25 04:46 DC 07/30/25 06:29 0.5 MG Methylprednisolone Sodium Succinate 62.5 mg ONCE ONCE IV 07/30/25 04:45 07/30/25 04:46 DC 07/30/25 04:51 62.5 MG Assessment/Plan Assessment/Plan Assessment: Acute hypoxic respiratory failure, COPD exacerbation, Possible pneumonia, Hypertension, Diabetes, Plan: Admit to Med-Surg, BiPAP, Social service consult, Breathing treatments, IV steroids, IV anabiotics, Accu checks with sliding scale, Home medications reconciled, Plan discussed with: Patient My Orders Orders - LIZBETH LINTON Procedure Category Date Status Time Admit ADMIT 07/30/25 Transmitted 08:16 Code Status CODE 07/30/25 Transmitted 08:16 2 Gm Sodium Diet DIET 07/30/25 Transmitted Breakfast Hydrocodone-Acet PHA 07/30/25 Transmitted 5/325mg Tab ([place] 08:30 Ondansetron Hcl PHA 07/30/25 Verified (Zofran) 08:30 Docusate Sodium PHA 07/30/25 Verified Capsule (Colace 08:30 Complete Blood Count LAB 07/31/25 Verified 04:00 Comprehensive LAB 07/31/25 Verified Metabolic Panel 04:00 Condition: Serious LOU 07/30/25 Verified 08:16 Acetaminophen Tablet PHA 07/30/25 Verified (Tylenol Tablet) 08:30 Ipratropium Medneb PHA 07/30/25 Verified (Atrovent Medneb) 12:00 Albuterol Medneb PHA 07/30/25 Verified (Ventolin Medneb) 12:00 Methylprednisolone PHA 07/30/25 Verified Sod Succ (Solu Medrol 10:00 Ceftriaxone Ivpb PHA 07/30/25 Verified Rocephin 09:00 Azithromycin 500mg/ PHA 07/30/25 Verified 250ml (Zithromax 50 10:00 Glucose Blood PHA 07/30/25 Verified (Accu-Chek Comfort 11:30 Mild Sliding Scale PHA 07/30/25 Verified 11:30 Dextrose 50% Syringe PHA 07/30/25 Verified 08:30 * Home Insurance Agent CONS 07/30/25 Transmitted Consult Amlodipine Tablet PHA 07/30/25 Verified (Norvasc Tablet) 10:00 Date of Service: Jul 30, 2025 Billing Provider: LIZBETH LINTON Common Visit Codes: [id number] INP/OBS CARE (HIGH) LIZBETH LINTON Jul 30, 2025 08:32
[2025-07-30] MEDS: methylPREDNISolone SOD SUCC 40 MG/ML VL IV SCH (10:23)
[2025-07-30] MEDS: AZITHROMYCIN 500MG/ 250ML 250 ML IV SCH (10:24)
[2025-07-30] MEDS: ACCU-CHEK COMFORT CURVE STRIP VI SCH (11:53)
[2025-07-30] MEDS: IPRATROPIUM BROM 0.5 MG/2.5ML INH SOL NEB SCH (11:54)
[2025-07-30] MEDS: ALBUTEROL SULF 2.5 MG/0.5ML(0.5%) NEB SOLN NEB SCH (11:54)
[2025-07-30] MEDS: InsuLIN REG 1unit/0.01ml Soln (100units/ml) SC SCH (12:01)
[2025-07-30] MEDS ORDERED: AMIODARONE HCL 200 MG TAB PO SCH (22:00)
[2025-07-31] VITALS (17 sets, daily range): BP systolic 125–136; BP diastolic 67–90; PULSE 77–110; RESP 16–24; TEMP 97.6–98.2; O2SAT 93–99
[2025-07-31] MEDS: ALBUTEROL SULF 2.5 MG/0.5ML(0.5%) NEB SOLN NEB SCH (03:37)
[2025-07-31 06:51] LABS: Hematocrit 41.3 % (41.0-53.0); Hemoglobin 13.9 g/dL (13.5-17.5); Mean Corpuscular Hemoglobin 30.4 pg (28.0-32.0); Mean Corpuscular Volume 89.9 fL (80.0-100.0); Nucleated Red Blood Cells % 0.0 %
[2025-07-31 07:03] LABS: Alanine Aminotransferase 17 U/L (7-40); Albumin 3.6 g/dL (3.2-4.8); Alkaline Phosphatase 98 U/L (46-116); Anion Gap 7 (5-15); BUN/Creatinine Ratio 10.8 (10.0-20.0); Blood Urea Nitrogen 10 mg/dL (9-23); Calcium 8.8 mg/dL (8.7-10.4); Carbon Dioxide 30 mmol/L (20-31); Chloride 101 mmol/L (98-107); Glucose 297 mg/dL (74-106); Potassium 4.2 mmol/L (3.5-5.1); Sodium 138 mmol/L (136-145); Total Protein 6.1 g/dL (5.7-8.2)
[2025-07-31 07:04] LABS: Bilirubin, Total 0.9 mg/dL (0.2-1.0)
--- NOTE | 2025-07-31 13:40 | DVHPN2 ---
Subjective Patient states that his shortness of breath has improved. Reviewed: Care Plan, H&P, Labs, Medications Changes from previous H/P or p: No Changes General: Per HPI Eyes: No Pain, No Vision change, No Conjunctivae inflammation, No Eyelid inflammation, No Other, No Redness ENT: No Ear pain, No Ear discharge, No Nose pain, No Nose discharge, No Nose congestion, No Mouth pain, No Mouth swelling, No Throat pain, No Throat swelling, No Other Cardiovascular: No Chest Pain, No Palpitations, No Orthopnea, No Paroxysmal Noc. Dyspnea, No Edema, No Lt Headedness, No Other Respiratory: Cough; No Dry; Shortness of breath, SOB with excertion, Wheezing; No Hemoptysis; Pleuritic Pain; No Sputum; Other (Rib pain from coughing) Gastrointestinal: No Nausea, No Vomiting, No Abdominal Pain, No Diarrhea, No Constipation, No Melena, No Hematochezia, No Other Genitourinary: No Dysuria, No Frequency, No Incontinence, No Hematuria, No Retention, No Other Musculoskeletal: No other, No neck pain, No shoulder pain, No arm pain, No back pain, No hand pain, No leg pain, No foot pain Skin: No Rash, No Lesions, No Jaundice, No Bruising, No Other Objective Vitals Vital Signs Date Time Temp Pulse Resp B/P (MAP) Pulse Ox O2 Delivery O2 Flow Rate FiO2 07/31/25 13:24 98.0 78 16 125/79 (94) 93 98.0 07/31/25 11:51 Nasal Cannula 3.0 07/31/25 11:51 32 Intake/Output Intake and Output 07/31/25 07:00 Intake Total 625 ml Output Total 290 ml Balance 335 ml Intake Oral 625 ml Output Urine Total 290 ml General Appearance: Alert, Oriented X3, Cooperative, mild distress HEENT: Atraumatic, PERRLA Lungs: Clear to auscultation, Normal air movement Cardiovascular: Normal S1, Normal S2 Abdomen: Normal bowel sounds, Soft, No tenderness, No hepatospenomegaly, No masses Back: Flank Tenderness, Midline Tenderness Musculoskeletal: Normal sensory function, Normal motor function Skin: Dry, Intact Psych/Mental Status: Mental status NL, Mood NL Medications Current Medications Medications Dose Ordered Sig/Ed Route Start Time Stop Time Status Last Admin Dose Admin Acetaminophen/ Hydrocodone Bitart 1 tab Q4HP PRN PO 9/3/25 08:30 Ondansetron HCl 4 mg Q4HP PRN IV 07/30/25 08:30 Docusate Sodium 100 mg BIDPRN PRN PO 07/30/25 08:30 Acetaminophen 650 mg Q6HP PRN PO 07/30/25 08:30 Ipratropium [place] 0.5 mg Q6HWA NEB 07/30/25 12:00 07/31/25 11:51 0.5 MG Methylprednisolone Sodium Succinate 40 mg BID IV 07/30/25 10:00 07/31/25 09:21 40 MG Ceftriaxone Sodium 50 ml @ 100 mls/hr DAILY@09 IV 07/30/25 09:00 07/31/25 09:21 100 MLS/HR Azithromycin 250 ml @ 125 mls/hr DAILY IV 07/30/25 10:00 07/31/25 10:00 125 MLS/HR Diagnostic Test (Pha) 1 strip ACHS 07/30/25 11:30 07/31/25 11:30 1 STRIP Insulin Human Regular ACHS SC 07/30/25 11:30 07/31/25 11:30 4 UNITS Dextrose 50 ml UD PRN IV 07/30/25 08:30 Amlodipine Besylate 5 mg DAILY PO 07/30/25 10:00 07/31/25 09:22 5 MG Albuterol 2.5 mg Q6HP NEB 07/31/25 03:00 07/31/25 11:51 2.5 MG Laboratory Results Laboratory Tests 07/31/25 05:51 Chemistry Test 07/31/25 05:51 Albumin 3.6 g/dL (3.2-4.8) Calcium Level 8.8 mg/dL (8.7-10.4) Total Protein 6.1 g/dL (5.7-8.2) LFT Test 07/31/25 05:51 Alanine Aminotransferase (ALT) 17 U/L (7-40) Alkaline Phosphatase 98 U/L (46-116) Aspartate Amino Transferase (AST) 16 U/L (13-40) Total Bilirubin 0.9 mg/dL (0.2-1.0) Labs and/or images reviewed: Labs reviewed by me, Image(s) reviewed by me Assessment/Plan Assessment/Plan Impression: -acute hypoxic respiratory failure -rule out community-acquired pneumonia, probable Gram-positive/Gram-negative etiology -COPD with exacerbation -primary hypertension -hyperglycemia, rule out diabetes mellitus -history of nicotine dependence -medication noncompliance Plan: -continue bronchodilators. Add Pulmicort b.i.d. -continue Solu-Medrol 40 mg IV b.i.d. -continue antibiotic therapy with Rocephin and azithromycin -CT scan of the chest -check A1c, TSH -regular insulin sliding scale -repeat labs in a.m. Total time spent with patient discussing and formulating plan of care: 35 minutes. This medical document was created using an electronic medical record system with [employer] dictation system. Although this document has been carefully reviewed, there may still be some phonetic and typographical errors. These areas are purely typographical due to imperfections of the software programs, and do not reflect any compromise in the patient's medical care. Plan discussed with: Patient, Other (RN) Date of Service: Jul 31, 2025 Billing Provider: CINDY STEPHENSON NP Common Visit Codes: [id number] INP/OBS CARE(HIGH) CINDY STEPHENSON NP Jul 31, 2025 13:40
[2025-07-31] MEDS ORDERED: guaiFENesin-DM 100/10mg/5ml SYR PO PRN (13:45)
--- NOTE | 2025-07-31 14:39 | DVH ---
Indication: pneumonia Technique: CT axial images of the chest are obtained without contrast. Coronal and sagittal reformats were obtained. Radiation Dose Information: CTDI volume is 16.3 mGy. Dose-length product is 709 mGy*cm Comparison: None FINDINGS: The trachea is patent. No pneumothorax. Pulmonary emphysematous changes. Bilateral atelectasis. Left upper lobe ground-glass nodule measuring 6 mm. Heart normal in size. Coronary artery calcification disease. No significant pleural effusion. No sup raclavicular, axillary lymphadenopathy. Cholecystectomy. No aggressive osseous process. [id number] thoracic degenerative disc disease IMPRESSION: Limited evaluation without contrast. No pulmonary airspace consolidation. Pulmonary emphysematous changes. 6 mm left upper lobe ground-glass nodule. Recommend follow-up per Fleischner society criteria. Coronary artery calcification disease. Other findings as described.
[2025-07-31] MEDS: BUDESONIDE (INHALATION) 0.5 MG/2 ML NEB NEB SCH (19:01)
[2025-08-01] VITALS (12 sets, daily range): BP systolic 120–140; BP diastolic 67–82; PULSE 62–93; RESP 16–19; TEMP 97.7–98.2; O2SAT 95–100
[2025-08-01 06:05] LABS: Hematocrit 40.6 % (41.0-53.0); Hemoglobin 13.7 g/dL (13.5-17.5); Mean Corpuscular Hemoglobin 30.5 pg (28.0-32.0); Mean Corpuscular Volume 90.6 fL (80.0-100.0); Nucleated Red Blood Cells % 0.0 %
[2025-08-01 06:11] LABS: Chloride 101 mmol/L (98-107); Potassium 4.7 mmol/L (3.5-5.1); Sodium 139 mmol/L (136-145)
[2025-08-01 06:12] LABS: Anion Gap 6 (5-15); Calcium 8.7 mg/dL (8.7-10.4)
[2025-08-01 06:17] LABS: BUN/Creatinine Ratio 13.3 (10.0-20.0); Blood Urea Nitrogen 14 mg/dL (9-23)
[2025-08-01 06:24] LABS: Carbon Dioxide 32 mmol/L (20-31); Glucose 261 mg/dL (74-106)
[2025-08-01] MEDS ORDERED: DEXTROSE (50%) 50ML SYRG IV PRN ×2 (11:45→13:00)
[2025-08-01] MEDS ORDERED: PRED20TA2 PO (12:59)
[2025-08-01] MEDS ORDERED: METF-929 PO (12:59)
[2025-08-01] MEDS ORDERED: LEVO500T91 PO (12:59)
--- NOTE | 2025-08-01 13:11 | DVHDS2 ---
Discharge Summary Date of Admission Jul 30, 2025 at 08:16 Date of Discharge: Aug 01, 2025 Admitting Diagnosis Acute hypoxic respiratory failure Labs/Diagnostic Data: Laboratory Results Test 08/01/25 10:42 08/01/25 05:01 07/31/25 05:51 07/30/25 06:10 POC Glucose 329 mg/dl (70-106) White Blood Count 13.8 10^3/uL (4.4-10.8) Red Blood Count 4.48 10^6/uL (4.5-5.90) Hemoglobin 13.7 g/dL (13.5-17.5) Hematocrit 40.6 % (41.0-53.0) Mean Corpuscular Volume 90.6 fL (80.0-100.0) Mean Corpuscular Hemoglobin 30.5 pg (28.0-32.0) Mean Corpuscular Hemoglobin Concent 33.6 g/dL (32.0-36.0) Red Cell Distribution Width 13.7 % (11.8-14.3) Platelet Count 271 10^3/uL (140-450) Mean Platelet Volume 8.6 fL (6.9-10.8) Neutrophils (%) (Auto) 91.1 % (37.0-80.0) Lymphocytes (%) (Auto) 4.5 % (10.0-50.0) Monocytes (%) (Auto) 4.1 % (0.0-12.0) Eosinophils (%) (Auto) 0.1 % (0.0-7.0) Basophils (%) (Auto) 0.2 % (0.0-2.0) Neutrophils # (Auto) 12.5 10 ^3/uL (1.6-8.6) Lymphocytes # (Auto) 0.6 10 ^3/uL (0.4-5.4) Monocytes # (Auto) 0.6 10 ^3/uL (0-1.3) Eosinophils # (Auto) 0 10 ^3/uL (0-0.8) Basophils # (Auto) 0 10 ^3/uL (0-0.2) Nucleated Red Blood Cells 0.0 % Sodium Level 139 mmol/L (136-145) Potassium Level 4.7 mmol/L (3.5-5.1) Chloride Level 101 mmol/L (98-107) Carbon Dioxide Level 32 mmol/L (20-31) Anion Gap 6 (5-15) Blood Urea Nitrogen 14 mg/dL (9-23) Creatinine 1.05 mg/dL (0.700-1.30) Glomerular Filtration Rate Calc 75 mL/min (>90) BUN/Creatinine Ratio 13.3 (10.0-20.0) Serum Glucose 261 mg/dL (74-106) Calcium Level 8.7 mg/dL (8.7-10.4) Hemoglobin A1c 8.0 % A1C (<5.7) Total Bilirubin 0.9 mg/dL (0.2-1.0) Aspartate Amino Transferase (AST) 16 U/L (13-40) Alanine Aminotransferase (ALT) 17 U/L (7-40) Alkaline Phosphatase 98 U/L (46-116) Total Protein 6.1 g/dL (5.7-8.2) Albumin 3.6 g/dL (3.2-4.8) Thyroid Stimulating Hormone (TSH) 0.47 uIU/mL (0.55-4.78) Blood Gas Specimen Type Arterial Blood Gas Sample Site Right radial Blood Gas Patient Temperature 37.0 Arterial Blood Date Drawn [id number] Arterial Blood pH 7.454 (7.350-7.450) Arterial Blood Partial Pressure CO2 41.6 mmHg (35.0-48.0) Arterial Blood Partial Pressure O2 225.9 mmHg (83.0-108.0) Arterial Blood HCO3 28.5 mmol/L (21.0-28.0) Arterial Blood Oxygen Saturation 99.5 % (94.0-98.0) Arterial Blood Base Excess 4.2 mmol/L (-2.0-3.0) Arterial Blood Oxyhemoglobin 98.5 % (94.0-98.0) Arterial Blood Carboxyhemoglobin 0.2 % (0.5-1.5) Arterial Blood Methemoglobin 0.8 % (0.0-1.5) Jayme Test Yes Blood Gas Total Hemoglobin 15.30 g/dL (13.5-17.5) Blood Gas Set Respiration Rate 12.0 Blood Gas Modality Mask - bipap FiO2 % 60.0 Blood Gas EPAP 5 Blood Gas IPAP 12 Test 07/30/25 04:48 Troponin I High Sensitivity 9 ng/L (</=54) B-Type Natriuretic Peptide 82.44 pg/mL (0-100) Other Laboratory Tests 08/01/25 05:01 Brief Hx & Hospital Course: History of Present Illness Stu Portillo is a 70-year-old male with past medial history of COPD, hypertension, and diabetes, who was brought to the hospital by EMS for shortness of breath. Patient states his shortness of breath began about 2 days ago, with an associated cough. He states it has continued to worsen over the last couple of days prompting him to come to the hospital. Patient was was placed on CPAP/oxygen and given breathing treatments by EMS as they transported the patient to the hospital. He Social service consult was placed due to patient stating he does not have a primary care provider, is not sure where he gets his prescriptions from, and states he stopped taking them due to side effects. He does not seem to understand what all his medications are or why he should be taking them. Course of hospitalization: Patient was treated with IV steroids, O2 supplementation after being weaned off of BiPAP, and empiric antibiotic therapy. Patient has CT scan of the chest which was negative for any opacities, with noted pulmonary nodule, 0.6 cm to left upper lobe. Patient's blood sugars noted to be somewhat difficult to control, with titration of regular insulin sliding scale. Apparently, patient was noncompliant with majority of his medications other than his albuterol nebulizer. Patient has been afebrile. He states that his respiratory status was back to baseline. Patient will follow up with the discharge Clinic in one week, at which time he will bring all of his home medications for the discharge Clinic to provide insight on which medications to continue. Patient will be discharged home on prednisone 40 mg p.o. daily x7 days, metformin a 1000 mg p.o. b.i.d., and Levaquin 500 mg p.o. daily for seven days. Patient was agreeable with discharge plan. All questions answered. Physical examination General: Alert and Oriented x3. No acute distress. Well-nourished. Eyes: EOMI. Anicteric. HENT: Moist mucous membranes. Lungs: Clear to auscultation bilaterally. No accessory muscle use. Cardiovascular: Regular rate and rhythm. No murmur. No JVD. Abdomen: Soft, non-tender and non-distended. No palpable masses. Extremities: No edema. Non-tender. Skin: No rashes or lesions. Warm. Neurologic: No focal neurological deficits. CN II-XII grossly intact, but not individually tested. Psychiatric: Cooperative. Appropriate mood and affect. Total time spent with patient discussing and formulating plan of care: 35 minutes. This medical document was created using an electronic medical record system with [employer] system. Although this document has been carefully reviewed, there may still be some phonetic and typographical errors. These areas are purely typographical due to imperfections of the software programs, and do not reflect any compromise in the patient's medical care. Condition at Discharge: Fair Final Diagnosis/Problems List Acute on Chronic Hypoxic Respiratory Failure Secondary diagnosis: -ruled out community-acquired pneumonia, probable Gram-positive/Gram-negative etiology -COPD with exacerbation -primary hypertension -hyperglycemia, rule out diabetes mellitus -history of nicotine dependence -medication noncompliance Discharge Disposition: Home Discharge Instruct/Medications Diet: Cardiac 2g Na,low cholest Activity: No Restrictions, As Tolerated Follow Up/Referral: [place] clinic in 1 week. Instructed to bring all home medications Medications: Prednisone 40mg po daily x 7 days Levaquin 500mg po daily x 7 days Metformin 1000mg po bid Accucheck bid Scheduled Levofloxacin Hemihydrate (Levaquin 500 Mg), 1 TAB PO DAILY Metformin HCl (Metformin Hydrochloride), 1,000 MG PO BID Prednisone (Prednisone), 20 MG PO BID Prednisone (Prednisone), 40 MG PO DAILY Umeclidinium-Vilanterol (Anoro Ellipta 62.5-25 Mcg/INH), 1 AER IN DAILY Discontinued Medications Albuterol Sulfate (Albuterol Sulfate), Unknown Dose NEB PRN PRN for SHORTNESS OF BREATH, (Reported) Amlodipine Besylate (Amlodipine Besylate), 5 MG PO DAILY, (Reported) Azithromycin (Azithromycin), 1 TAB PO DAILY Furosemide (Furosemide), 20 MG PO DAILY, (Reported) Metformin Hydrochloride (Metformin Hcl), Unknown Dose PO IBID, (Reported) 36 Discharge Statement: "Patient was advised to return to the ER or call 911 if any headaches, dizziness, shortness of breath, chest pain, abdominal pain, bleeding, fevers, or worsening of medical condition. Patient was counseled about treatment plan, medications, possible side effects, patientverbalized understanding. All questions were answered to the best of my ability. This discharge took greater then 30 minutes in planning, reviewing documentation, counseling the patient, and discussing with other team members." ASSESSMENT ASSESSMENT Assessment Acute on Chronic Hypoxic Respiratory Failure Date of Service: Aug 01, 2025 Billing Provider: CINDY STEPHENSON NP Common Visit Codes: 71571-[id number] DISCH DAY >30min CINDY STEPHENSON NP Aug 01, 2025 13:11
[2025-08-01] MEDS: ACCU-CHEK COMFORT CURVE STRIP VI SCH (15:41)
[2025-08-01] MEDS: InsuLIN REG 1unit/0.01ml Soln (100units/ml) SC SCH (15:42)
[2025-08-01] MEDS ORDERED: ACCU-CHEK COMFORT CURVE STRIP VI SCH (17:00)
[2025-08-01] MEDS ORDERED: InsuLIN REG 1unit/0.01ml Soln (100units/ml) SC SCH ×2 (17:00→22:00)
== END 2025-08-01 17:12 | disposition home or self-care (01) | DRG 189 ==
LOC: ER 04:31 → EDBD 04:31 → OVERFLOW 08:16 → WEST WING 15:12
PROVIDERS: ADMIT Nurse Practitioner Acute Care; ATTEND Nurse Practitioner Acute Care
PROC: 5A09357 Assistance with Respiratory Ventilation, Less than 24 Consecutive Hours, Continuous Positive Airway Pressure (ICD-10-PCS; principal; 2025-07-30)
DX: J96.21 Acute and chronic respiratory failure with hypoxia (principal); J44.1 Chronic obstructive pulmonary disease with (acute) exacerbation; E11.65 Type 2 diabetes mellitus with hyperglycemia; I11.0 Hypertensive heart disease with heart failure; I50.9 Heart failure, unspecified; Z87.891 Personal history of nicotine dependence; Z90.49 Acquired absence of other specified parts of digestive tract; Z91.148 Patient's other noncompliance with medication regimen for other reason; Z79.899 Other long term (current) drug therapy
CPT/HCPCS: 36415; 36600; 71045; 71250; 80048; 80053; 82805; 82962; 83036; 83880; 84443; 84484; 85025; 93005; 94640; 94660; 99291; 99292; G0378; J1815